=== PATIENT | male | born 1970 | race Caucasian/White ===

== ENCOUNTER 2017-01-20 09:13 | Emergency (ER) | payer OTHER ==
[~2017-01-20] VITALS: Ht 185.4 cm; Wt 96.6 kg
[~2017-01-20 09:13] MED LIST: ATORVASTATIN CA20 M1 PO; BENTYL20 M1 PO; CRESTOR10 M1 PO; METFORMIN HCL500 M3 PO; XARELTO20 M2 PO; ZOFRAN4 M2 SL
[2017-01-20 09:16] VITALS: BP 122/79
--- NOTE | 2017-01-20 10:01 | ED GENERAL ADULT ---
History of Present Illness General Chief Complaint: Upper Extremity Problem Stated Complaint: LEFT ARM PAIN/NUMBNESS X1DAY Source: patient Exam Limitations: no limitations Vital Signs & Intake/Output Vital Signs & Intake/Output Vital Signs Date Time Temp Pulse Resp B/P B/P Pulse O2 O2 Flow FiO2 Mean Ox Delivery Rate 01/20 0916 97.0 72 18 122/79 98 Room Air Allergies Coded Allergies: prednisone (Mild, RASH 01/28/16) Reconcile Medications Atorvastatin Calcium 20 MG TABLET 1 TAB PO QPM CHOLESTEROL (Reported) Dicyclomine HCl (Bentyl) 20 MG TABLET 1 TAB PO TID PRN GASTROENTERITIS Metformin HCl 500 MG TABLET DIABETES (Reported) Ondansetron HCl (Zofran) 4 MG TABLET 1 TAB SL Q6-8P PRN NAUSEA Oxycodone HCl 5 MG CAPSULE 1 CAP PO 4XDP Shoulder Pain Rivaroxaban (Xarelto) 20 MG TABLET 1 TAB PO QPM BLOOD THINNER (Reported) with food Rosuvastatin Calcium (Crestor) 10 MG TABLET 1 TAB PO DAILY HYPERLIPIDEMIA Triage Note: 46 Y/O MALE C/O FEW DAY HISTORY OF NECK PAIN AND BACK PAIN. YESTERDAY BEGAN TO HAVE L SHOULDER PAIN AND PAIN RADIATING DOWN INTO L ARM. STATES PAIN WORSE WITH MOVEMENT. ABLE TO LIFT ARM OVER HEAD BUT STATES THAT MAKES PAIN WORSE. PAIN WITH SHRUGGING SHOULDER WELL. DENIES INJURY OR TRAUMA. DENIES C/P. DENIES SOB Triage Nurses Notes Reviewed? yes HPI: 46 yo M PMH HTN, DM, DVT (on xarelto) presenting with left shoulder pain, parasthesias. Left shoulder pain since last night, constant with fluctuating intensity, worse with palpation or abduction of left shoulder, radiating to down left arm, sharp, shooting quality, non-exertional, associated intermittent parasthesias of left arm, no motor weakness, no swelling or erythema of left arm. Does not recall specific trauma or straining injury. Denies fevers, chest pain, palpitations, SOB, abdominal pain, headache, dizziness, or other focal neurologic Sx. (JOVANNI FAUST,TORY) Past History Travel History Traveled to [place] past 21 day No Medical History Any Pertinent Medical History? see below for history Neurological: migraine EENT: DEVIATED SEPTUM Cardiovascular: hyperlipidemia Respiratory: bronchitis Gastrointestinal: NONE Hepatic: NONE Renal: NONE Musculoskeletal: gout Psychiatric: NONE Endocrine: diabetes Blood Disorders: DVT Cancer(s): NONE RECREATION PROGRAMMER/Reproductive: NONE Surgical History Surgical History: non-contributory Psychosocial History What is your primary language Tristanian Tobacco Use: Quit >30 days ago Family History Hx Contributory? No (TORY BAIG MD) Review of Systems Review of Systems Constitutional: Reports: no symptoms. EENTM: Reports: no symptoms. Respiratory: Reports: no symptoms. Denies: cough, short of breath, wheezing. Cardiovascular: Reports: no symptoms. Denies: chest pain, orthopena, peripheral edema. GI: Reports: no symptoms. Genitourinary: Reports: no symptoms. Musculoskeletal: Reports: joint pain, muscle pain, muscle stiffness, neck pain. Denies: back pain. Skin: Reports: no symptoms. Neurological/Psychological: Reports: numbness, paresthesia, tingling. Denies: headache, unable to move upper ext, weakness. Hematologic/Endocrine: Reports: no symptoms. Immunologic/Allergic: Reports: no symptoms. All Other Systems: Reviewed and Negative (TORY BAIG MD) Physical Exam Physical Exam General Appearance: well developed/nourished, no apparent distress, alert, awake , anxious Head: atraumatic, normal appearance Eyes: Bilateral: normal appearance. Neck: normal inspection, full range of motion Respiratory: normal breath sounds, no respiratory distress Cardiovascular: regular rate/rhythm, normal peripheral pulses Peripheral Pulses: 2+ radial (R), 2+ radial (L) Gastrointestinal: normal bowel sounds, non-tender Back: normal inspection Extremities: normal inspection Comments: Left Neck: No midline c-spine TTP or TTP over paraspinal muscles Left Upper Extremity: Moderate tenderness to palpation over left lateral shoulder, Pain with passive abduction of left shoulder, ROM somewhat limited by pain but motor strength 5/5 in deltoid, biceps, triceps, forearm, hand margin analyst, endorses parasthesias of left hand and forearm, 2+ radial pulse, good cap refill x 5 Core Measures ACS in differential dx? Yes CVA/TIA Diagnosis: No Severe Sepsis Present: No Septic Shock Present: No (TORY BAIG MD) Progress Differential Diagnoses I considered the following diagnoses in my evaluation of the patient: Plan of Care: Orders Procedure Date/time Status EKG 01/20 1001 Active Physician MDM: 46 yo M PMH HTN, DM, DVT (on xarelto) presenting with left shoulder pain, parasthesias. VSS, exam as above. DDx: Cervicalgia, Brachial plexopathy, shoulder muscle impingement, shoulder muscle strain, low concern for LUE DVT, Low concern for CVA, Spinal cord compression, ACS, PE. ECG sinus rhythm , unchanged from previous, non-ischemic. Toradol/oxycodone given with moderate improvement in pain. Left shoulder XR with "There is acromioclavicular and glenohumeral joint space narrowing with early marginal osteophyte formation off the inferior aspect of the distal clavicle which can predispose to impingement. " On re-examination patient resting comfortably, results of XR discussed. Dicharged with return to care precautions, sling for comfort, pain control, plan to f/u with PMD in the next 2-3 days for further evaluation, possible MRI. The plan of care was discussed with the patient who expressed agreement and understanding. (JOVANNI FAUST,TORY) Initial ED EKG: normal sinus rhythm (TORY BAIG MD) Departure Departure Disposition: HOME OR SELF CARE Condition: Stable Clinical Impression Primary Impression: Left shoulder pain Secondary Impressions: Shoulder impingement Referrals: DORIAN ORDOÑEZ DO (PCP/Family) Additional Instructions: Take tylenol for mild-moderate pain. Take oxycodone for severe pain. Use shoulder sling as needed for comfort. Follow up with Dr. Ordoñez in the next 2-3 days for further evaluation. You may need an MRI to locate the cause of your pain and numbness. Return to the ED for any new, worsening, or concerning symptoms. Departure Forms: Customer Survey General Discharge Information Prescriptions: Current Visit Scripts Oxycodone HCl 1 CAP PO 4XDP #8 CAP (JOVANNI FAUST,TORY) PA/CRUSHER LOADER EQUIPMENT OPERATOR Co-Sign Statement Statement: ED Attending supervision documentation- [] I saw and evaluated the patient. I have also reviewed all the pertinent lab results and diagnostic results. I agree with the findings and the plan of care as documented in the PA's/CRUSHER LOADER EQUIPMENT OPERATOR's documentation. [X] I have reviewed the ED Record and agree with the PA's/CRUSHER LOADER EQUIPMENT OPERATOR's documentation. [] Additions or exceptions (if any) to the PAs/CRUSHER LOADER EQUIPMENT OPERATOR's note and plan are summarized below: [] (DENG MOSQUEDA DO) Critical Care Note Critical Care Note Critical Care Time: non-applicable (JOVANNI FAUST,TORY)
--- NOTE | 2017-01-20 11:30 | RADIOLOGY REPORT ---
EXAMINATION: XR SHOULDER, LEFT CLINICAL INFORMATION: Pain. COMPARISON: None TECHNIQUE: AP external rotation, Grashey, scapular Y, and axillary views of the left shoulder. FINDINGS: Bone mineral density is maintained without evidence of fracture or dislocation. No focal osseous lesions are seen. There is acromioclavicular and glenohumeral joint space narrowing with early marginal osteophyte formation off the inferior aspect of the distal clavicle which can predispose to impingement. There are mild degenerative changes in the cervical spine on the left side. IMPRESSION: Degenerative changes as noted.
[2017-01-20] MEDS ORDERED: OXYCODONE HCL5 M2 PO (11:41)
== END 2017-01-20 12:21 ==
LOC: ERH 09:13
DX: M25.512 Pain in left shoulder (principal)
CPT/HCPCS: 73030-LT; 93005; 93010; 96372; J1885